=== PATIENT | female | born 1970 | race Hispanic/Latino ===

== ENCOUNTER 2020-11-24 18:47 | Emergency (ER) | payer OTHER, BC ==
--- OUTSIDE RECORDS SUMMARY | 2020-11-24 18:49 | XMS REPORT | Continuity of Care Document ---
:1970 Author Organization [facility] t Address [address] [place] [address] Care Team Providers Name Role Phone Florentino COFFEY Attending Clinician Blanco Faith DO Attending Clinician Doctor Unassigned, Name Attending Clinician Unavailable Lab, Fam Pob I Attending Clinician Unavailable Pob1, Care Clinic Attending Clinician Unavailable Problems This patient has no known problems. Allergies, Adverse Reactions, Alerts This patient has no known allergies or adverse reactions. Medications This patient has no known medications. Procedures This patient has no known procedures. Encounters Start End Encounter Admission Attending Care Care Encounter Source Date/Time Date/Time Type Type Clinicians Facility Department ID 2020-10-29 2020-10-29 [facility] Tiffanie Good [facility] [id number] 15:07:33 23:59:00 Encounter [place] [id number] [place] [id number] [place] [id number] 2020-10-29 2020-10-29 Patient Marcell NJTAMI [id number] 00:00:00 00:00:00 Outreach Adam VACA [id number] Blanco ANAND 4.2.7.2.686 [place] [id number] 2020-10-25 2020-10-25 Orders Doctor BENITES 1.2.840.114 [id number] 00:00:00 00:00:00 Only Unassigned, [place] [id number] [facility] [id number] 2020-08-27 2020-08-27 Hospital Tiffanie Good [facility] 1.2.840.114 [id number] 15:24:28 23:59:00 Encounter [place] [id number] [place] [id number] [place] [id number] 2020-08-07 2020-08-07 Orders Doctor DELMIS 1.2.840.114 [id number] 00:00:00 00:00:00 Only Unassigned, BRAD[place] [id number] [facility] [id number] 2020-03-01 2020-03-01 Laboratory Lab, [facility] 1.2.840.114 [id number] 11:33:46 11:53:46 Only Fam Pob I Health [id number] [place] 4.2.7.2.686 [place] [id number] nal [address] 2020-03-01 2020-03-01 Letter Doctor DELMIS 1.2.840.114 [id number] 00:00:00 00:00:00 (Out) Unassigned, BRADY [id number] [facility] [id number] [id number] 2020-03-01 2020-03-01 Telephone Pob1, Acute [facility] 1.2.840.114 [id number] 00:00:00 00:00:00 [facility] [id number] [place] [id number] [facility] [id number] nal 044 [address] Results This patient has no known results.
--- NOTE | 2020-11-24 19:44 | ER ---
Nurse's Notes [facility] Name: Azucena Morales Age: 50 yrs Sex: Female : 1970 Arrival Date: 11/24/2020 Time: 18:48 Bed Waiting Private MD: Diagnosis: Presentation: 11/24 19:27 Note Called pt from the lobby, no answer. Called pt through phone, no answer. ca1 ED Course: 18:48 Patient arrived in ED. as 19:43 Patient's name was called from ER lobby. No response. Unable to locate patient. Will ca1 disposition as left without being seen by a provider. Administered Medications: No medications were administered Outcome: 19:43 Patient left the ED. ca1 Signatures: Cynthia Clarke Cheryl, RN RN ca1
== END 2020-11-24 19:43 | disposition left against medical advice (07) ==
LOC: ER 18:47
DX: Z02.9 Encounter for administrative examinations, unspecified (principal)